=== PATIENT | female | born 1945 | race Caucasian/White ===

== ENCOUNTER 2017-07-28 10:22 | Day surgery (SDC) | payer MEDICARE, OTHER ==
[2017-07-24 14:16] LABS: BASOPHILS % (AUTO) 0.5 % (0-1); EOSINOPHILS # (AUTO) 0.3 X10'3 (0-0.9); EOSINOPHILS % (AUTO) 3.6 % (0-6); HEMATOCRIT 39.6 % (35.0-45.0); HEMOGLOBIN 13.5 g/dl (12.0-16.0); LYMPHOCYTES # (AUTO) 2.3 X10'3 (1.1-4.8); LYMPHOCYTES % (AUTO) 29.9 % (21-51); MEAN CORPUSCULAR HGB CONC 34.1 % (33.0-36.5); MEAN CORPUSCULAR VOLUME 87.9 FL (78-98); MEAN PLATELET VOLUME 7.8 FL (7.4-10.4); MONOCYTES # (AUTO) 0.4 X10'3 (0-0.9); MONOCYTES % (AUTO) 4.6 % (2-12); NEUTROPHILS # (AUTO) 4.8 X10'3 (1.8-7.7); NEUTROPHILS % (AUTO) 61.4 % (42-75); PLATELET COUNT 275 X10'3 (140-440); RED CELL DISTRIBUTION WIDTH 13.8 % (11.5-14.5); WHITE BLOOD COUNT 7.8 X10'3 (4.5-11.0)
[2017-07-24 14:27] LABS: PARTIAL THROMBOPLASTIN TIME 27 SECONDS (22-32); PROTHROMBIN TIME 10.5 SECONDS (9.0-12.0)
[2017-07-24 14:31] LABS: ALBUMIN 3.6 G/DL (3.4-5.0); ANION GAP 7 (8-16); BLOOD UREA NITROGEN 18 MG/DL (7-18); BUN/CREATININE RATIO 15.4 (6.6-38.0); CHLORIDE 110 MMOL/L (99-107); CHOL/HDL RATIO 3.5 (0.00-4.99); CHOLESTEROL 186 MG/DL (0-200); CREATININE 1.17 MG/DL (0.40-0.90); GLUCOSE 114 MG/DL (70-104); HDL CHOLESTEROL 53 MG/DL (35-60); LDL CHOLESTEROL 115 MG/DL (50-100); POTASSIUM 4.3 MMOL/L (3.5-5.1); SODIUM 147 MMOL/L (135-145); TOTAL CARBON DIOXIDE 29.6 MMOL/L (24-32); TRIGLYCERIDES 105 MG/DL (20-135); eGFR 46 ML/MIN
[~2017-07-28] VITALS: Ht 167.6 cm; Wt 68.4 kg
[2017-07-28] VITALS (16 sets, daily range): BP systolic 92–128; BP diastolic 45–64
[2017-07-28] MEDS ORDERED: LORazepam 0.5 MG tablet PO PRN (11:00)
[2017-07-28] MEDS ORDERED: diphenhydrAMINE 25mg capsule PO PRN (11:00)
[2017-07-28] MEDS ORDERED: normal saline 1000ml 1,000 ML IV SCH ×2 (11:00→13:10)
[2017-07-28] MEDS ORDERED: HYDR-565 PO (11:05)
[2017-07-28] MEDS ORDERED: ATEN-169 PO (11:06)
[2017-07-28] MEDS ORDERED: HYDR200T84 PO (11:07)
[2017-07-28] MEDS ORDERED: ALPR1TAB2 PO (11:08)
[2017-07-28] MEDS ORDERED: METH10TA4 PO (11:09)
[2017-07-28] MEDS ORDERED: OMEP40CA37 PO (11:11)
[2017-07-28] MEDS ORDERED: ASPI81TA52 PO (11:12)
[2017-07-28] MEDS ORDERED: CALC500P30 PO (11:12)
[2017-07-28] MEDS ORDERED: SUCR1ORA2 PO (11:13)
[2017-07-28] MEDS ORDERED: CHOL100046 PO (11:14)
[2017-07-28] MEDS ORDERED: midazolam 2 mg/2 ml injection ONE ×2 (12:06→12:19)
[2017-07-28] MEDS ORDERED: fentaNYL/PF 50MCG/1 ML 2ML syringe ONE (12:06)
[2017-07-28] MEDS ORDERED: HYDROcodone/acetaminophen 5mg/325mg tablet PO PRN (13:10)
[2017-07-28] MEDS ORDERED: ondansetron/PF 4mg/2ml inj IV PRN (13:10)
[2017-07-28] MEDS ORDERED: OXAZEpam 15mg capsule PO PRN (13:10)
[2017-07-28] MEDS ORDERED: proCHLORperazine 10 MG/2 ml inj IV PRN (13:10)
[2017-07-28] MEDS ORDERED: nitroGLYCERIN 0.4mg SUBLingual tab SL PRN (13:10)
[2017-07-28] MEDS ORDERED: HYDROcodone/acetaminophen 10/325mg tab PO PRN (13:10)
[2017-07-28] MEDS ORDERED: iohexol 350MG/ML 100ml bottle IV ONE (13:44)
[2017-07-28] MEDS ORDERED: LIDOcaine 1% w/EPI 1:100,000 30ml vial (MDV) ONE (13:44)
== END 2017-07-28 18:00 | disposition home or self-care (01) ==
LOC: SSTAY O 10:22
PROVIDERS: ATTEND Internal Medicine Interventional Cardiology
DX: I34.0 Nonrheumatic mitral (valve) insufficiency (principal); I20.8 Other forms of angina pectoris; F41.9 Anxiety disorder, unspecified; G47.33 Obstructive sleep apnea (adult) (pediatric); I10 Essential (primary) hypertension; E78.4 Other hyperlipidemia; Z79.899 Other long term (current) drug therapy; Z79.82 Long term (current) use of aspirin; Z88.0 Allergy status to penicillin; Z82.49 Family history of ischemic heart disease and other diseases of the circulatory system
CPT/HCPCS: 36415; 80048; 80061; 85025; 85610; 85730; 93005; 93458; 99152; A6257; C1769; J1644; J2250; J3010; J3490; J7030; Q0163; Q9967; A4620

== ENCOUNTER 2020-07-26 06:47 | Day surgery (SDC) | payer MEDICARE, OTHER ==
[~2020-07-26] VITALS: Ht 167.6 cm; Wt 79.0 kg
[~2020-07-26 06:47] MED LIST: ALPR1TAB2 PO; ASPI81TA52 PO; ATEN-169 PO; CALC500P30 PO; CHOL100046 PO; HYDR-4353 PO; HYDR200T84 PO; METH10TA4 PO; OMEP40CA13 PO; SUCR1ORA2 PO
[2020-07-26 07:00] VITALS: BP 127/57
[2020-07-26] MEDS ORDERED: LYR25C PO (08:00)
[2020-07-26] MEDS ORDERED: METO-395 PO (08:00)
[2020-07-26] MEDS ORDERED: PANT-47 PO (08:00)
[2020-07-26] MEDS ORDERED: DULO60CA65 PO (08:00)
[2020-07-26] MEDS ORDERED: LIDOcaine 1%/PF 5ML 10 MG/ML VIAL ONE (12:09)
[2020-07-26] MEDS ORDERED: midazolam 1 mg/ML 2ml injection ONE ×2 (12:09→12:40)
[2020-07-26] MEDS ORDERED: fentaNYL/PF 50MCG/1 ML 2ML syringe ONE ×2 (12:09→12:40)
[2020-07-26] MEDS ORDERED: diphenhydrAMINE 50 mg/ml inj ONE (12:33)
[2020-07-26] MEDS ORDERED: HYDROcodone/acetaminophen 5mg/325mg tablet PO PRN (13:10)
[2020-07-26] MEDS ORDERED: normal saline 1000ml 1,000 ML IV SCH (13:10)
[2020-07-26 13:22] VITALS: BP 123/76
[2020-07-26 13:37] VITALS: BP 123/59
[2020-07-26 13:52] VITALS: BP 115/58
== END 2020-07-26 14:20 | disposition home or self-care (01) ==
LOC: SSTAY O 06:47
PROVIDERS: ATTEND Radiology Diagnostic Radiology
DX: M89.8X8 Other specified disorders of bone, other site (principal); Z79.899 Other long term (current) drug therapy; Z88.0 Allergy status to penicillin
CPT/HCPCS: 20225; 77002; 99152; 99153; J1200; J2250; J3010

== ENCOUNTER 2020-07-31 05:08 | Day surgery (SDC) | payer MEDICARE, OTHER ==
[2020-07-25 12:23] LABS: BASOPHILS % (AUTO) 0.5 % (0-1); EOSINOPHILS # (AUTO) 0.2 X10'3 (0-0.9); EOSINOPHILS % (AUTO) 2.7 % (0-6); HEMATOCRIT 38.1 % (35.0-45.0); HEMOGLOBIN 12.3 g/dl (12.0-16.0); LYMPHOCYTES % (AUTO) 34.3 % (21-51); MEAN CORPUSCULAR HGB CONC 32.3 g/dL (33.0-36.5); MEAN CORPUSCULAR VOLUME 86.6 FL (78-98); MEAN PLATELET VOLUME 8.3 FL (7.4-10.4); MONOCYTES # (AUTO) 0.6 X10'3 (0-0.9); NEUTROPHILS # (AUTO) 4.8 X10'3 (1.8-7.7); NEUTROPHILS % (AUTO) 55.5 % (42-75); PLATELET COUNT 284 X10'3 (140-440); RED CELL DISTRIBUTION WIDTH 14.1 % (11.5-14.5); WHITE BLOOD COUNT 8.7 X10'3 (4.5-11.0)
[2020-07-25 12:44] LABS: ALBUMIN 3.6 G/DL (3.4-5.0); ANION GAP 9 (8-16); BLOOD UREA NITROGEN 28 MG/DL (7-18); BUN/CREATININE RATIO 24.3 (6.6-38.0); CALCIUM 9.2 MG/DL (8.5-10.1); CHLORIDE 109 MMOL/L (99-107); CREATININE 1.15 MG/DL (0.40-0.90); GLUCOSE 85 MG/DL (70-104); POTASSIUM 4.2 MMOL/L (3.5-5.1); SODIUM 147 MMOL/L (135-145); TOTAL CARBON DIOXIDE 29.4 MMOL/L (24-32); eGFR 46 ML/MIN
[2020-07-25 13:20] LABS: PARTIAL THROMBOPLASTIN TIME 25 SECONDS (22-32)
[2020-07-26 08:34] VITALS: BP 127/57
[~2020-07-31] VITALS: Ht 167.6 cm; Wt 79.0 kg
[2020-07-31] VITALS (9 sets, daily range): BP systolic 103–143; BP diastolic 35–64
[~2020-07-31 05:08] MED LIST changes: -ALPR1TAB2 PO; -ASPI81TA52 PO; -ATEN-169 PO; -CALC500P30 PO; -CHOL100046 PO; +DULO60CA65 PO; +LYR25C PO; -METH10TA4 PO; +METO-395 PO; -OMEP40CA13 PO; +PANT-47 PO; -SUCR1ORA2 PO
[2020-07-31] MEDS ORDERED: diphenhydrAMINE 25mg capsule PO PRN (05:30)
[2020-07-31] MEDS ORDERED: normal saline 1,000 ML IV SCH (05:30)
[2020-07-31] MEDS ORDERED: LORazepam 0.5 MG tablet PO PRN (05:30)
[2020-07-31] MEDS ORDERED: VITAMIN E PO (05:39)
[2020-07-31] MEDS ORDERED: CHOL100053 PEG (05:39)
[2020-07-31] MEDS ORDERED: ASCO-157 PO (05:39)
[2020-07-31] MEDS ORDERED: CALCIUM CITRATE PO (05:39)
[2020-07-31] MEDS ORDERED: MULT-1085 PO (05:39)
[2020-07-31] MEDS ORDERED: iohexol 350MG/ML 100ml bottle IV ONE (06:02)
[2020-07-31] MEDS ORDERED: nitroGLYCERIN-Tridil 50MG/D5W 250 ML IV ONE (06:02)
[2020-07-31] MEDS ORDERED: midazolam 1 mg/ML 2ml injection ONE (06:02)
[2020-07-31] MEDS ORDERED: verapamil 2.5 mg/ml inj IV ONE (06:02)
[2020-07-31] MEDS ORDERED: fentaNYL/PF 50MCG/1 ML 2ML syringe ONE (06:02)
[2020-07-31] MEDS ORDERED: heparin 1,000unit/ml 10ml vial 10 ML ONE (06:02)
[2020-07-31] MEDS ORDERED: LIDOcaine 1% (10mg/ml)w/preservative injection 20ml MDV ONE (06:02)
[2020-07-31] MEDS ORDERED: OXAZEpam 15mg capsule PO PRN (07:30)
[2020-07-31] MEDS ORDERED: proCHLORperazine 10 MG/2 ml inj IV PRN (07:30)
[2020-07-31] MEDS ORDERED: HYDROcodone/acetaminophen 5mg/325mg tablet PO PRN (07:30)
[2020-07-31] MEDS ORDERED: ondansetron/PF 4mg/2ml inj IV PRN (07:30)
[2020-07-31] MEDS ORDERED: HYDROcodone/acetaminophen 10/325mg tab PO PRN (07:30)
== END 2020-07-31 11:00 | disposition home or self-care (01) ==
LOC: SSTAY O 05:08
PROVIDERS: ATTEND Internal Medicine Interventional Cardiology
DX: R94.30 Abnormal result of cardiovascular function study, unspecified (principal); R07.89 Other chest pain; I25.10 Atherosclerotic heart disease of native coronary artery without angina pectoris; I10 Essential (primary) hypertension; J45.909 Unspecified asthma, uncomplicated; I34.8 Other nonrheumatic mitral valve disorders; E78.5 Hyperlipidemia, unspecified; Z79.899 Other long term (current) drug therapy
CPT/HCPCS: 36415; 80048; 85025; 85610; 85730; 93005; 93458; 99152; C1769; C1894; J1644; J2001; J2250; J3010; J7030; Q0163; Q9967; A4620; A5120; J3490

== ENCOUNTER 2023-08-02 11:14 | Emergency (ER) | payer MEDICARE, OTHER ==
[~2023-08-02] VITALS: Ht 167.6 cm; Wt 59.1 kg
[~2023-08-02 11:14] MED LIST changes: +CHOL100053 PEG; +CYCL10TA25 PO; +DICL100G59 TOP; +DOCU-148 PO; -DULO60CA65 PO; +HYDR200T73 PO; -HYDR200T84 PO; +LIDO700A47 TOP; -LYR25C PO; +MULT-1085 PO; +SUMA50TA17 PO
[2023-08-02 11:21] VITALS: TEMP 98.6
[2023-08-02] MEDS ORDERED: HYDR-3973 PO (12:08)
[2023-08-02] MEDS: HYDROcodone/acetaminophen 10/325mg tab PO ONE (12:15)
[2023-08-02 12:17] VITALS: BP 169/77; PULSE 120; RESP 20; O2SAT 98
[2023-08-02] MEDS: SUMAtriptan 25 MG tablet PO ONE (12:27)
[2023-08-02] MEDS ORDERED: HYDR-3972 PO (18:11)
== END 2023-08-02 13:04 | disposition home or self-care (01) ==
LOC: ER 11:14
DX: M25.462 Effusion, left knee (principal); Z88.0 Allergy status to penicillin; Z79.899 Other long term (current) drug therapy
CPT/HCPCS: 73590; 99284; A6449